=== PATIENT | female | born 1970 | race Caucasian/White ===

== ENCOUNTER 2023-12-27 04:48 | Emergency (ER) | payer OTHER ==
[~2023-12-27] VITALS: Ht 162.6 cm; Wt 68.2 kg
[2023-12-27 04:52] VITALS: TEMP 99.1
[2023-12-27 05:02] VITALS: PULSE 108; RESP 24; O2SAT 96
[2023-12-27] MEDS: ALBUTEROL SULFATE 2.5 MG/0.5 ML NEB SOLUTION NEB ONE (05:02)
[2023-12-27] MEDS: IPRATROPIUM BROMIDE 0.5 MG/2.5 ML NEB SOLUTION NEB ONE ×2 (05:02→05:51)
[2023-12-27 05:20] VITALS: PULSE 90; RESP 22; O2SAT 98
[2023-12-27 05:51] VITALS: PULSE 74; RESP 20; O2SAT 95
[2023-12-27] MEDS: ALBUTEROL SULFATE 2.5 MG/0.5 ML 5 ML NEB SOLUTION NEB ONE (05:51)
[2023-12-27 06:30] LABS: BASOPHILS % (AUTO) 0.2 % (0.0-2.0); EOSINOPHILS % (AUTO) 6.8 % (1.0-6.0); HEMATOCRIT 41.9 % (36-46); HEMOGLOBIN 14.2 g/dL (12.0-16.0); LYMPHOCYTES # (AUTO) 1.5 K/uL (1.0-4.8); LYMPHOCYTES % (AUTO) 16.1 % (22.0-44.0); MEAN CORPUSCULAR HEMOGLOBIN 32.9 pg (26.0-34.0); MEAN CORPUSCULAR HGB CONC 33.7 G/dL (31.0-37.0); MEAN CORPUSCULAR VOLUME 98 fL (80-100); MONOCYTES # (AUTO) 0.5 K/uL (0.1-1.0); MONOCYTES % (AUTO) 5.2 % (2.0-9.0); NEUTROPHILS # (AUTO) 6.9 K/uL (1.8-7.7); NEUTROPHILS % (AUTO) 71.7 % (40.0-70.0); PLATELET COUNT (AUTO) 235 K/uL (150-450); RED CELL DISTRIBUTION WIDTH 12.9 % (11.5-14.5); WHITE BLOOD COUNT (AUTO) 9.6 K/uL (4.5-11.0)
[2023-12-27] MEDS: PredniSONE 20 MG TABLET PO ONE (06:39)
[2023-12-27 07:15] LABS: TROPONIN I-HIGH SENSITIVITY Less Than 4 ng/L (<51)
[2023-12-27 07:16] VITALS: PULSE 106; RESP 18; O2SAT 99
[2023-12-27 07:20] LABS: CALCIUM, TOTAL 8.6 mg/dL (8.8-10.5); CREATININE 1.01 mg/dL (0.60-1.30); POTASSIUM 3.1 mmol/L (3.5-5.1)
[2023-12-27] MEDS ORDERED: AZIT250T9 PO (07:50)
[2023-12-27] MEDS ORDERED: PRED-554 PO (07:50)
[2023-12-27] MEDS: ALBUTEROL SULFATE HFA 90 MCG/PUFF 8 GM INHALER IH ONE (08:01)
[2023-12-27 08:11] VITALS: BP 112/75; PULSE 84; RESP 18
== END 2023-12-27 08:12 | disposition home or self-care (01) ==
LOC: EMS 04:48
DX: J45.909 Unspecified asthma, uncomplicated (principal); Z90.710 Acquired absence of both cervix and uterus
CPT/HCPCS: 99285; 71045; 80048; 83880; 84484; 85025; 36415; 94644; 93005; J7512; Q9967; J3535; 94640; J7613